=== PATIENT | male | born 1935 | race Caucasian/White ===

== ENCOUNTER 2021-08-07 07:29 | Inpatient (IN) | payer OTHER ==
[~2021-08-07] VITALS: Ht 185.4 cm; Wt 107.6 kg
[~2021-08-07 07:29] MED LIST: ACET500 PO; ALBU90OI INH; ASCORBIC ACID500 MG PO; ASPI81CH PO; ATOR40TA PO; Aspir 8181 MG PO; CLOP75 PO; ELIQUIS5 M2 PO; GABA300 PO; MELO7.5 PO; METO25 PO; METO25ER PO; OMEP20ER PO; PANT20 PO; STRIVERDI RESPIM4 G1 IH; SUCR1 PO; TAMS.4ER PO; Vitamin B-121000 MCG PO
[2021-08-07 08:22] LABS: BASOPHILS ABSOLUTE AUTO 0.05 K/mm3 (0.00-0.23); BASOPHILS PERCENT AUTO 0 % (0-2); EOSINOPHILS ABSOLUTE AUTO 0.13 K/mm3 (0.00-0.68); EOSINOPHILS PERCENT AUTO 1 % (0-6); Hematocrit 26.5 % (37.0-53.0); IMMATURE GRAN ABSOLUTE AUTO 0.07 K/mm3 (0.00-0.10); IMMATURE GRAN PERCENT AUTO 1 % (0-1); LYMPHOCYTES ABSOLUTE AUTO 1.24 K/mm3 (0.84-5.20); LYMPHOCYTES PERCENT AUTO 11 % (21-46); MONOCYTES ABSOLUTE AUTO 0.68 K/mm3 (0.16-1.47); MONOCYTES PERCENT AUTO 6 % (4-13); Mean Corpuscular HGB 30.7 pg (26.0-34.0); Mean Corpuscular HGB Conc 30.2 g/dL (31.5-36.5); Mean Corpuscular Volume 102 fL (80-100); Mean Platelet Volume 9.7 fL (9.1-12.4); NEUTROPHILS ABSOLUTE AUTO 9.64 K/mm3 (1.96-9.15); NEUTROPHILS PERCENT AUTO 82 % (41-73); Platelet Count 514 K/mm3 (150-400); RDW Coefficient Variation 18.4 % (11.7-14.2); RDW Standard Deviation 67.7 fL (35.1-46.3); Red Blood Cell Count 2.61 M/mm3 (4.30-5.90); White Blood Cell Count 11.81 K/mm3 (4.00-11.30)
[2021-08-07 08:34] LABS: Albumin/Globulin Ratio 0.9 (0.8-1.8); Bilirubin, Total 0.2 mg/dL (0.1-1.0); Bun/Creatinine Ratio 27.1 (12.0-20.0); Calcium, Blood 8.4 mg/dL (8.5-10.1); Creatinine, Blood 1.55 mg/dL (0.60-1.20); Globulin, Blood 3.4 g/dL (2.2-4.0); Potassium, Blood 4.7 mmol/L (3.5-5.5); Total Protein, Blood 6.4 g/dL (6.4-8.2)
[2021-08-07 12:58] LABS: International Normalized Ratio 1.02; Prothrombin Time Results 10.7 Sec (9.7-11.5)
[2021-08-07 15:27] LABS: Hematocrit 23.9 % (37.0-53.0); Hemoglobin 7.2 g/dL (13.5-17.5)
--- NOTE | 2021-08-07 15:42 | NUR ---
FROM PCU TO SDS ADMISSION TO UNIT STARTED.
--- NOTE | 2021-08-07 15:43 | NUR ---
1508 Pt arrived on stretcher from the ED. Awake, alert and oriented, and able to sit on stretcher and stand, move over to the bed. Denies dizzyness/lightheadedness. STates that he is an everyday 5 cigarettes/day smoker. Noted cough which is coarse and productive. Pt states he does not expectorate, only swallows the sputum. Lung sounds were coarse crackles but after coughing it was clear to auscultation anteriorly, and occasional wheeze but no crackles noted on posterior lower lobes. Pt is uncertain of his last medication administration times. He does not know if he is on Plavix and Aspirin. Medication list which he had in his belongins is dated January 2021. STates that his daughter would be able to help with his updated medication list, but that she is on her way to buddhist and so is unavailable at this time. 1545 Pt was taken by Bassam leija scope with Dr. Esquivel.
--- NOTE | 2021-08-07 16:06 | NUR ---
08/07/21 1606 Bassam Carpenter History, Chart, Medications and Allergies reviewed before start of procedure. Patient confirms NPO status and agrees with scheduled surgery. 3-LEAD EKG REVIEWED WITH PHYSICIAN PRIOR TO START OF PROCEDURE. MONITOR INTACT WITH CONTINUOUS PULSE OXIMETRY AND INTERMITTENT BP. PATIENT DETERMINED TO BE ASA APPROPRIATE FOR PROPOFOL SEDATION PRIOR TO START OF PROCEDURE BY DR. SARKAR
--- NOTE | 2021-08-07 17:01 | NUR ---
Pt returned from EGD at this time. He is awake, alert, and pleasantly conversant. Eating non-red clear liquid diet at this time.
[2021-08-07 21:03] LABS: Hematocrit 24.6 % (37.0-53.0); Hemoglobin 7.2 g/dL (13.5-17.5)
[2021-08-08 04:05] LABS: Hematocrit 24.6 % (37.0-53.0); Hemoglobin 7.3 g/dL (13.5-17.5); Mean Corpuscular HGB 30.2 pg (26.0-34.0); Mean Corpuscular HGB Conc 29.7 g/dL (31.5-36.5); Mean Corpuscular Volume 102 fL (80-100); Mean Platelet Volume 9.6 fL (9.1-12.4); Platelet Count 489 K/mm3 (150-400); RDW Coefficient Variation 18.2 % (11.7-14.2); RDW Standard Deviation 68.6 fL (35.1-46.3); Red Blood Cell Count 2.42 M/mm3 (4.30-5.90); White Blood Cell Count 19.01 K/mm3 (4.00-11.30)
[2021-08-08 04:32] LABS: Bun/Creatinine Ratio 27.3 (12.0-20.0); Calcium, Blood 8.3 mg/dL (8.5-10.1); Creatinine, Blood 1.61 mg/dL (0.60-1.20); Potassium, Blood 4.4 mmol/L (3.5-5.5)
--- NOTE | 2021-08-08 05:27 | NUR ---
SHIFT SUMMARY A/O X4. VITAL SIGNS STABLE. STAND BY ASSIST W/ FWW TO BEDSIDE COMMODE. FIRST ROUND OF BOWEL PREP FINISHED LAST NIGHT AND SECOND ROUND WILL BE STARTED THIS AM. PT HAS HAD MULTIPLE EPISODES OF LOOSE, BLACK, COFFEE GROUND TEXTURED BOWEL MOVEMENTS. PT ALSO HAD EPISODE OF EMESIS W/ 600ML OF GREENISH BROWN COLORED VOMIT. VOIDING WELL. PLEASANT AND COOPERATIVE W/ CARE. WILL CONTINUE TO MONITOR AND REPORT TO ONCOMING RN.
--- NOTE | 2021-08-08 09:18 | NUR ---
CARE NOTE PT LEFT PCU APPROX 0915 FOR PROCEDURE VIA HOSPITAL BED WITH CHOCO CABRERA FROM DAY SURGERY. WILL MONITOR WHEN BACK FROM PROCEDURE.
--- NOTE | 2021-08-08 09:25 | NUR ---
BROUGHT TO [facility] NEW IV NEEDED
--- NOTE | 2021-08-08 12:27 | NUR ---
POST PROCEDURE NOTE PT ARRIVED IN PCU AT 1146, HE WAS TRANSFERED VIA SLIDER BACK TO BED. CHOCO CABRERA GAVE THIS NURSE BEDSIDE REPORT. VITAL SIGNS STABLE UPON RETURN, HE DID SOUND A BIT WHEEZY SO BREATHING TREATMENT FROM RESPIRATORY CARE REQUESTED AND GIVEN BY CARMEN FROM RT. THIS NURSE ATTEMPTED TO NOTIFY DAUGHTER KAITY REGARDING PT ARRIVAL TO PCU WITH NO ANSWER. NS NOW INFUSING PER EMAR ORDERS IN LEFT FOREARM IV, WILL CONTINUE TO MONITOR.
--- NOTE | 2021-08-08 17:57 | NUR ---
SHIFT SUMMARY PT HAS REMAINED ALERT AND ORIENTED X 4, HE IS HARD OF HEARING. SEE PREVIOUS NOTES ABOUT PROCEDURE. VITAL SIGNS HAVE REMAINED STABLE WITH SPO2 98-100% VIA ROOM AIR. HE HAS CONTINUED TO DENY FEELINGS OF CHEST PAIN/PRESSURE, PAIN IN OTHER REGIONS INCLUDING ABD PAIN. HE ALSO DENIED FEELINGS OF NAUSEA/VOMITTING. HE HAS NOT HAD A BM SINCE ARRIVAL TO PCU FROM OR, SKIN IS DRY/CLEAN/INTACT. HE HAS SINCE VOIDED, SEE I&O'S. DISCHARGE INSTRUCTIONS GIVEN BY DR. MCRAE. THIS NURSE IS NOW WAITING FOR DAUGHTER KAITY TO ARRIVE FOR DISCHARGE INSTRUCTIONS TO BE GIVEN. WILL CONTIUE TO MONITOR UNITL DISCHARGE. CALL LIGHT IN REACH.
--- NOTE | 2021-08-08 18:48 | NUR ---
DISCHARGE NOTE PT WAS ALERT AND ORIENTED X 4 UPON DISCHARGE, VITAL SIGNS STABLE. PT WAS ABLE TO AMBULATE/GET DRESSED WITH MINIMAL ASSISTANCE. THIS NURSE GAVE DISCHARGE INSTRUCTIONS TO HEALTHCARE PROXY/DAUGHTER KAITY INCLUDING FOLLOW UP APPOINTMENTS, EDUCATION REGARDING DIAGNOSIS, AND MEDICATIONS TO CONTINUE/STOP TAKING PER DR. MCRAE ORDERS. PT LEFT PCU APPROX. 1833 VIA WHEELCHAIR ESCORTED BY THIS NURSE, ALL OF PT BELONGINGS WENT WITH PT DAUGHTER/PT, HE WAS STABLE UPON DISCHARGE. IV'S WERE REMOVED WITH NO APPARENT BLEEDING.
== END 2021-08-08 19:46 | disposition home or self-care (01) | DRG 393 ==
LOC: ER 07:29 → PCU 13:12
PROVIDERS: Internal Medicine Gastroenterology; Physician Assistant; Student in an Organized Health Care Education/Training Program; ADMIT Internal Medicine
PROC: 0DJ08ZZ Inspection of Upper Intestinal Tract, Via Natural or Artificial Opening Endoscopic (ICD-10-PCS; principal; 2021-08-07 15:45)
PROC: 0DBL8ZZ Excision of Transverse Colon, Via Natural or Artificial Opening Endoscopic (ICD-10-PCS; 2021-08-08)
PROC: 0DBN8ZZ Excision of Sigmoid Colon, Via Natural or Artificial Opening Endoscopic (ICD-10-PCS; 2021-08-08)
PROC: 0DBK8ZZ Excision of Ascending Colon, Via Natural or Artificial Opening Endoscopic (ICD-10-PCS; 2021-08-08 09:00)
DX: K64.8 Other hemorrhoids (principal); K57.31 Diverticulosis of large intestine without perforation or abscess with bleeding; D62 Acute posthemorrhagic anemia; K62.5 Hemorrhage of anus and rectum; K63.5 Polyp of colon; K21.9 Gastro-esophageal reflux disease without esophagitis; I25.10 Atherosclerotic heart disease of native coronary artery without angina pectoris; I48.0 Paroxysmal atrial fibrillation; J44.9 Chronic obstructive pulmonary disease, unspecified; I12.9 Hypertensive chronic kidney disease with stage 1 through stage 4 chronic kidney disease, or unspecified chronic kidney disease; N18.32 Chronic kidney disease, stage 3b; I73.9 Peripheral vascular disease, unspecified; E78.5 Hyperlipidemia, unspecified; N40.0 Benign prostatic hyperplasia without lower urinary tract symptoms; F17.210 Nicotine dependence, cigarettes, uncomplicated; D63.1 Anemia in chronic kidney disease; D50.9 Iron deficiency anemia, unspecified; Z95.5 Presence of coronary angioplasty implant and graft; Z88.8 Allergy status to other drugs, medicaments and biological substances; Z79.02 Long term (current) use of antithrombotics/antiplatelets; Z79.82 Long term (current) use of aspirin; Z79.899 Other long term (current) drug therapy
CPT/HCPCS: 36415; 74177; 80048; 80053; 82272; 83735; 85014; 85018; 85025; 85027; 85610; 86850; 86900; 86901; 93005; 93010; 94640; 94664; 94760; 96365-59; 96366; 96367; 96376; 99285-25; A9270; C9113; J2354; J2704; J7030; J7120; Q9967